=== PATIENT | female | born 1980 ===

== ENCOUNTER 2019-06-04 15:02 | Outpatient (REF) | payer BC, SELFPAY ==
--- NOTE | 2019-06-04 14:40 | PAPFT_PTH ---
PATIENT: SABINO ORDONEZ LOC: [facility] U#:[id number] AGE/SX: 38/F ROOM: RE06/04/[address]: Monique Gonzalez : 1980 BED: DIS: 06/04/2019 SPEC #: [id number] RECD: 06/05/19 13:12 STATUS: RAVIN REQ #: [id number] BAKARI: 06/04/19 14:[address]: Monique Gonzalez DEPT: [facility] Cytology RECD BY: Latoya Aguilera ENTERED: 06/05/19 13:13 SP TYPE: PAPFT OTHR DR: Marisol Darnell Tissues: 1 - CX/ENDOCX FOR PAP SMEARS Procedures: PAP THIN PREP/[facility] Screening HPV DNA PROBE Comments: [id number]
[2019-06-04 22:12] LABS: Abs Immature Grans 0.04 k/cumm (0.0-0.09); Absolute Basophil Count 0.03 k/cumm (0.0-0.2); Absolute Lymphocyte Count 1.95 k/cumm (1.2-3.4); Absolute Monocyte Count 0.54 k/cumm (0.11-0.7); Absolute Neutrophil Count 3.58 k/cumm (1.2-6.7); Basophils % 0.5; Eosinophils % 1.6; HCT 42.9 % (36.0-46.0); HGB 14.4 g/dL (12.0-15.5); Immature Grans % 0.6; Lymphocytes % 31.3; Mean Corp. HGB Concentration 33.6 g/dL (32.0-36.0); Mean Corpuscular Hemoglobin 30.8 pg (27.0-33.0); Mean Corpuscular Volume 91.9 fL (80-95); Mean Platelet Volume 10.8 fL (8.0-11.0); Monocytes % 8.7; Neutrophils % 57.3; Platelet Count 294 x1000/uL (130-400); RBC 4.67 m/cumm (4.00-5.20); RBC Distribution Width 13.1 % (11.7-14.6); White Blood Cell Count 6.24 k/cumm (4.4-10.8)
[2019-06-04 22:35] LABS: Calculated LDL 157 mg/dL; Cholesterol 216 mg/dL (<200); HDL Cholesterol 39 mg/dL (40-60); TSH (W/Ref FT4) 1.94 uIU/mL (0.36-3.74); Triglyceride 102 mg/dL (<150)
== END 2019-06-04 15:22 ==
LOC: NCHCN 15:02
PROVIDERS: PCP Family Medicine; Visit Provider Nurse Practitioner Family
DX: Z12.4 Encounter for screening for malignant neoplasm of cervix (principal); Z13.220 Encounter for screening for lipoid disorders; Z13.29 Encounter for screening for other suspected endocrine disorder; R59.1 Generalized enlarged lymph nodes
CPT/HCPCS: 80061; 88142; 84443; 85025; 87624